=== PATIENT | female | born 2000 | race Caucasian/White ===

== ENCOUNTER 2022-01-25 18:01 | Emergency (ER) | payer OTHER ==
[~2022-01-25] VITALS: Wt 88.9 kg
[~2022-01-25 18:01] MED LIST: ANTIPSYCHOTIC; CELEXA10 MG PO; CORTISPORIN SUS10 ML OT; DEPAKOTE125 MG PO; IBUPROFEN600 MG PO
[2022-01-25] MEDS ORDERED: COMPAZINE5 M3 PO (18:17)
[2022-01-25] MEDS ORDERED: CLONAZEPAM0.125 MG PO (18:17)
[2022-01-25] MEDS ORDERED: NAPROSYN EC375 MG PO (18:18)
[2022-01-25] MEDS ORDERED: ZOLOFT25 MG PO (18:18)
[2022-01-25] MEDS ORDERED: AMITIZA8 MCG PO (18:18)
[2022-01-25] MEDS ORDERED: Bactroban Oint22 GM T (18:20)
[2022-01-25] MEDS ORDERED: HALOPERIDOL0.5 MG PO (18:20)
[2022-01-25 19:01] LABS: BASO # 0.1 10*3/uL (0.0-0.1); BASO % 0.4 % (0.0-1.0); EOS % 0.3 % (1.0-4.0); HEMATOCRIT 39.3 % (37.0-47.0); LYMPH # 0.8 10*3/uL (1.3-4.4); LYMPH % 5.7 % (27.0-41.0); MEAN CELL VOLUME 89.5 fl (81.0-99.0); MEAN CORPUSCULAR HGB 30.1 pg (27.0-31.0); MEAN CORPUSCULAR HGB CONC 33.6 g/dl (33.0-37.0); MEAN PLATELET VOLUME 9.6 fl (9.6-12.3); MONO # 0.5 10*3/uL (0.1-1.0); MONO % 3.6 % (3.0-9.0); NEUT # 12.1 10*3/uL (2.3-7.9); NEUT % 89.7 % (47.0-73.0); PLATELET COUNT AUTOMATED 300 10*3/uL (130-400); RED BLOOD COUNT 4.39 10*6/uL (4.10-5.10); RED CELL DISTRI WIDTH 13.6 % (0-14.5); WHITE BLOOD COUNT 13.5 10*3/uL (4.8-10.8)
[2022-01-25 19:27] LABS: ALKALINE PHOSPHATASE 79 U/L (45-117); BUN 4 mg/dl (7-24); CHLORIDE 113 mmol/L (98-107); POTASSIUM 3.3 mmol/L (3.5-5.1); SGPT/ALT 20 U/L (12-78); SODIUM 141 mmol/L (136-145); TOTAL PROTEIN 7.4 gm/dL (6.4-8.2)
[2022-01-25] MEDS ORDERED: TOPIRAMATE100 M2 PO (20:19)
[2022-01-25] MEDS ORDERED: LEVOTHYROXINE100 MC1 PO (20:19)
[2022-01-25] MEDS ORDERED: NALTREXONE HCL50 MG PO (20:20)
[2022-01-25] MEDS ORDERED: KLONOPIN2 M1 PO (20:34)
== END 2022-01-26 00:19 | disposition home or self-care (01) ==
LOC: ED 18:01
PROVIDERS: Physician Assistant
DX: A41.9 Sepsis, unspecified organism (principal); R65.20 Severe sepsis without septic shock; Z20.822 Contact with and (suspected) exposure to COVID-19; J18.9 Pneumonia, unspecified organism; E87.6 Hypokalemia; Z79.899 Other long term (current) drug therapy

== ENCOUNTER 2022-02-21 08:42 | Emergency (ER) | payer OTHER ==
[~2022-02-21] VITALS: Wt 81.6 kg
[~2022-02-21 08:42] MED LIST changes: +AMITIZA8 MCG PO; +Bactroban Oint22 GM T; +CLONAZEPAM0.125 MG PO; +COMPAZINE5 M3 PO; +HALOPERIDOL0.5 MG PO; +KLONOPIN2 M1 PO; +LEVOTHYROXINE100 MC1 PO; +NALTREXONE HCL50 MG PO; +NAPROSYN EC375 MG PO; +TOPIRAMATE100 M2 PO; +ZOLOFT25 MG PO
[2022-02-21 10:41] LABS: BASO # 0.1 10*3/uL (0.0-0.1); BASO % 0.4 % (0.0-1.0); EOS % 0.2 % (1.0-4.0); HEMATOCRIT 39.4 % (37.0-47.0); LYMPH # 0.9 10*3/uL (1.3-4.4); MEAN CELL VOLUME 87.9 fl (81.0-99.0); MEAN CORPUSCULAR HGB 30.8 pg (27.0-31.0); MEAN PLATELET VOLUME 9.5 fl (9.6-12.3); MONO # 1.4 10*3/uL (0.1-1.0); MONO % 10.8 % (3.0-9.0); NEUT # 10.8 10*3/uL (2.3-7.9); PLATELET COUNT AUTOMATED 227 10*3/uL (130-400); RED BLOOD COUNT 4.48 10*6/uL (4.10-5.10); RED CELL DISTRI WIDTH 13.6 % (0-14.5); WHITE BLOOD COUNT 13.3 10*3/uL (4.8-10.8)
[2022-02-21 10:59] LABS: ALKALINE PHOSPHATASE 81 U/L (46-116); BUN 6 mg/dl (9-23); CHLORIDE 104 mmol/L (98-107); CREATININE 0.69 mg/dL (0.55-1.02); POTASSIUM 3.8 mmol/L (3.4-5.1); SGPT/ALT 16 U/L (10-49); SODIUM 135 mmol/L (136-145); TOTAL PROTEIN 7.6 gm/dL (6.0-8.0)
[2022-02-21 12:56] LABS: BILIRUBIN Negative (Negative); BLOOD Negative (Negative); CLARITY Clear (Clear); COLOR Yellow (Yellow); GLUCOSE Negative (Negative); KETONE Negative (Negative); LEUKO ESTERASE Negative (Negative); NITRITE Negative (Negative); PH 7.5 (4.5-8.0)
[2022-02-21 13:11] LABS: RBC 0-2 rbc/hpf (0-2); WBC 0-2 wbc/hpf (0-5)
[2022-02-21] MEDS ORDERED: VIBRA-TAB100 MG PO (14:02)
== END 2022-02-21 14:11 | disposition home or self-care (01) ==
LOC: ED 08:42
PROVIDERS: Student in an Organized Health Care Education/Training Program
DX: J18.9 Pneumonia, unspecified organism (principal); Z20.822 Contact with and (suspected) exposure to COVID-19; Z88.8 Allergy status to other drugs, medicaments and biological substances; Z79.899 Other long term (current) drug therapy

== ENCOUNTER 2022-08-13 14:51 | Emergency (ER) | payer OTHER ==
[~2022-08-13] VITALS: Ht 170.1 cm; Wt 89.8 kg
[~2022-08-13 14:51] MED LIST changes: +AMOX-CLAV 875-1 EACH PO; +HALOPERIDOL5 MG PO; +LEVOFLOXACIN750 M2 PO; +VIBRA-TAB100 MG PO
[2022-08-13 15:57] LABS: BILIRUBIN Negative (Negative); BLOOD Negative (Negative); CLARITY Clear (Clear); COLOR Yellow (Yellow); GLUCOSE Negative (Negative); KETONE Negative (Negative); LEUKO ESTERASE Negative (Negative); NITRITE Negative (Negative); PH 6.5 (4.5-8.0); SPECIFIC GRAVITY <= 1.005 (1.001-1.030); UROBILINOGEN 0.2 E.U./dl (0.0-1.0)
[2022-08-13 16:00] LABS: BASO # 0.1 10*3/uL (0.0-0.1); BASO % 0.7 % (0.0-1.0); EOS # 0.2 10*3/uL (0.0-0.4); EOS % 1.8 % (1.0-4.0); HEMATOCRIT 36.9 % (37.0-47.0); LYMPH # 3.1 10*3/uL (1.3-4.4); LYMPH % 29.5 % (27.0-41.0); MEAN CELL VOLUME 86.8 fl (81.0-99.0); MEAN CORPUSCULAR HGB 29.4 pg (27.0-31.0); MEAN CORPUSCULAR HGB CONC 33.9 g/dl (33.0-37.0); MEAN PLATELET VOLUME 9.8 fl (9.6-12.3); MONO # 0.9 10*3/uL (0.1-1.0); NEUT # 6.3 10*3/uL (2.3-7.9); NEUT % 59.5 % (47.0-73.0); PLATELET COUNT AUTOMATED 287 10*3/uL (130-400); RED BLOOD COUNT 4.25 10*6/uL (4.10-5.10); RED CELL DISTRI WIDTH 13.2 % (0-14.5); WHITE BLOOD COUNT 10.6 10*3/uL (4.8-10.8)
[2022-08-13 16:10] LABS: BACTERIA TRACE; EPITHELIAL CELLS 0-2; RBC 0-2 rbc/hpf (0-2); WBC 0-2 wbc/hpf (0-5)
[2022-08-13 16:27] LABS: ALKALINE PHOSPHATASE 71 U/L (46-116); BUN 6 mg/dl (9-23); CHLORIDE 106 mmol/L (98-107); LIPASE 37 U/L (12-53); POTASSIUM 3.3 mmol/L (3.4-5.1); SGPT/ALT 13 U/L (10-49); TOTAL PROTEIN 6.6 gm/dL (6.0-8.0)
== END 2022-08-13 18:05 | disposition home or self-care (01) ==
LOC: ED 14:51
PROVIDERS: Internal Medicine
DX: B34.9 Viral infection, unspecified (principal); G43.909 Migraine, unspecified, not intractable, without status migrainosus; Z88.8 Allergy status to other drugs, medicaments and biological substances; Z98.890 Other specified postprocedural states

== ENCOUNTER 2022-10-16 14:16 | Emergency (ER) | payer OTHER ==
[2022-10-16 14:34] LABS: RED BLOOD COUNT 4.61 10*6/uL (4.10-5.10)
[2022-10-16 14:35] LABS: BASO % 0.8 % (0.0-1.0); EOS % 1.6 % (1.0-4.0); HEMATOCRIT 39.5 % (37.0-47.0); LYMPH % 26.9 % (27.0-41.0); MEAN CELL VOLUME 85.7 fl (81.0-99.0); MEAN CORPUSCULAR HGB 29.1 pg (27.0-31.0); MEAN CORPUSCULAR HGB CONC 33.9 g/dl (33.0-37.0); MEAN PLATELET VOLUME 10.4 fl (9.6-12.3); NEUT % 62.3 % (47.0-73.0); PLATELET COUNT AUTOMATED 307 10*3/uL (130-400); RED CELL DISTRI WIDTH 13.8 % (0-14.5)
[2022-10-16 14:36] LABS: BASO # 0.1 10*3/uL (0.0-0.1); EOS # 0.1 10*3/uL (0.0-0.4); LYMPH # 2.2 10*3/uL (1.3-4.4); MONO # 0.6 10*3/uL (0.1-1.0)
[2022-10-16 14:39] LABS: ALKALINE PHOSPHATASE 79 U/L (46-116); CHLORIDE 110 mmol/L (98-107); POTASSIUM 3.5 mmol/L (3.4-5.1); SGPT/ALT 13 U/L (10-49); TOTAL PROTEIN 7.5 gm/dL (6.0-8.0)
[2022-10-16 14:43] LABS: BUN < 5 mg/dl (9-23)
== END 2022-10-16 15:46 | disposition home or self-care (01) ==
LOC: ED 14:16
PROVIDERS: Student in an Organized Health Care Education/Training Program
DX: S00.81XA Abrasion of other part of head, initial encounter (principal); L08.9 Local infection of the skin and subcutaneous tissue, unspecified; G43.909 Migraine, unspecified, not intractable, without status migrainosus; Z88.8 Allergy status to other drugs, medicaments and biological substances; Z98.890 Other specified postprocedural states; W50.4XXA Accidental scratch by another person, initial encounter; Y93.89 Activity, other specified; Y92.009 Unspecified place in unspecified non-institutional (private) residence as the place of occurrence of the external cause; Y99.8 Other external cause status

== ENCOUNTER 2022-12-25 20:34 | Emergency (ER) | payer OTHER ==
[~2022-12-25] VITALS: Ht 170.1 cm; Wt 81.6 kg
[2022-12-25 21:19] LABS: BASO # 0.1 10*3/uL (0.0-0.1); BASO % 0.7 % (0.0-1.0); EOS # 0.2 10*3/uL (0.0-0.4); EOS % 1.8 % (1.0-4.0); HEMATOCRIT 37.2 % (37.0-47.0); LYMPH # 1.6 10*3/uL (1.3-4.4); LYMPH % 16.4 % (27.0-41.0); MEAN CELL VOLUME 86.3 fl (81.0-99.0); MEAN CORPUSCULAR HGB 29.7 pg (27.0-31.0); MEAN CORPUSCULAR HGB CONC 34.4 g/dl (33.0-37.0); MEAN PLATELET VOLUME 9.6 fl (9.6-12.3); MONO # 0.7 10*3/uL (0.1-1.0); NEUT # 7.3 10*3/uL (2.3-7.9); NEUT % 73.8 % (47.0-73.0); PLATELET COUNT AUTOMATED 241 10*3/uL (130-400); RED BLOOD COUNT 4.31 10*6/uL (4.10-5.10); RED CELL DISTRI WIDTH 13.3 % (0-14.5); WHITE BLOOD COUNT 9.8 10*3/uL (4.8-10.8)
[2022-12-25 21:32] LABS: ACT PARTIAL THROMBO TIME 27.9 SECONDS (20.0-32.1)
[2022-12-25 21:41] LABS: ALKALINE PHOSPHATASE 67 U/L (46-116); BUN 14 mg/dl (9-23); CHLORIDE 108 mmol/L (98-107); LIPASE 41 U/L (12-53); POTASSIUM 3.6 mmol/L (3.4-5.1); SGPT/ALT 14 U/L (5-49); TOTAL PROTEIN 6.9 gm/dL (6.0-8.0)
[2022-12-25 22:54] LABS: BILIRUBIN Negative (Negative); BLOOD Negative (Negative); CLARITY Cloudy (Clear); COLOR Yellow (Yellow); GLUCOSE Negative (Negative); KETONE Negative (Negative); LEUKO ESTERASE Trace (Negative); NITRITE Negative (Negative); PH 7.5 (4.5-8.0)
[2022-12-25 23:06] LABS: BACTERIA TRACE
[2022-12-26] MEDS ORDERED: VIBRAMYCIN100 MG PO (00:18)
== END 2022-12-26 00:30 | disposition home or self-care (01) ==
LOC: ED 20:34
PROVIDERS: Internal Medicine
DX: J18.9 Pneumonia, unspecified organism (principal); F84.0 Autistic disorder; R53.83 Other fatigue; Z88.8 Allergy status to other drugs, medicaments and biological substances; Z79.899 Other long term (current) drug therapy; Z98.890 Other specified postprocedural states